=== PATIENT | male | born 1980 | race Caucasian/White ===

== ENCOUNTER 2022-08-12 08:13 | Emergency (ER) | payer BC, SELFPAY ==
[2022-08-12] VITALS (15 sets, daily range): BP systolic 118–145; BP diastolic 81–101; PULSE 86–103; RESP 16–22; TEMP 36.6; O2SAT 89–99; BMI 33.0
[2022-08-12] MEDS: KETOROLAC 15 MG/ML inj IVP (08:58)
[2022-08-12] MEDS: IPRAT-ALBUT 0.5-2.5 MG/3 ML NEB 1 NEB IH (08:58)
[2022-08-12] MEDS: predniSONE 20 MG TABLET 60 MG PO (08:58)
[2022-08-12 08:59] LABS: Basophils Absolute Auto 0.02 K/uL (0.00-0.30); Basophils Percent Auto 0.2 % (0.0-3.0); Eosinophils Absolute Auto 0.01 K/uL (0.00-0.50); Eosinophils Percent Auto 0.1 % (0.0-7.0); Hematocrit 54.1 % (37.0-53.0); Hemoglobin* 18.9 gm/dL (13.5-17.5); Immature Granulocytes Abs Auto 0.04 K/uL (0.00-0.30); Immature Granulocytes Pct Auto 0.5 %; Lymphocytes Absolute Auto 2.06 K/uL (0.90-2.90); Lymphocytes Percent Auto 25.4 % (20-44); Mean Corpuscular HGB Conc 35 gm/dL (32-36); Mean Corpuscular Hemoglobin 30 pg (26-34); Mean Corpuscular Volume 87 fL (80-100); Monocytes Percent Auto 10.2 % (0.0-11.0); Neutrophils Absolute Auto 5.14 K/uL (1.7-7.0); Neutrophils Percent Auto 63.6 % (42.0-72.0); Platelet Count* 204 K/uL (140-440); RDW Coefficient of Variation % 12.2 % (11.5-15.5); Red Blood Count 6.22 m/uL (4.30-5.90)
[2022-08-12 09:05] LABS: Slide Review Reflex No
[2022-08-12 09:11] LABS: Chloride* 104 mmol/L (96-114)
[2022-08-12 09:12] LABS: Albumin* 4.6 g/dL (3.3-5.0); Potassium* 4.1 mmol/L (3.6-5.1); Sodium* 137 mmol/L (135-149)
[2022-08-12 09:14] LABS: Creatinine* 0.9 mg/dL (0.5-1.5); Est. Creatinine Clearance* 109.27; Estimated Glomerular Filt Rate 109 ml/min
[2022-08-12 09:15] LABS: Alanine Aminotransferase* 42 U/L (4-50); Alkaline Phosphatase* 82 U/L (40-150); Aspartate Amino Transferase* 33 U/L (12-35); Bilirubin Direct* 0.2 mg/dL (0.0-0.5); Blood Urea Nitrogen* 15 mg/dL (5-24); Carbon Dioxide* 22 mmol/L (20-32); Glucose* 105 mg/dL (60-115)
[2022-08-12 09:18] LABS: C Reactive Protein* 1.4 mg/dL (0.5-1.0)
[2022-08-12 09:27] LABS: NT Pro B Type NatriureticPept* < 20 pg/mL
[2022-08-12 09:32] LABS: SARS PCR* Negative SARS-CoV-2 (Negative)
[2022-08-12 09:37] LABS: D Dimer Quantitative* < 0.27 ug/ml (0.00-0.50)
--- NOTE | 2022-08-12 09:42 | CRLHL7_ITS ---
For Patients: As a result of the Century Cures Act, medical imaging exams and procedure reports are released immediately into your electronic medical record. You may view this report before your referring provider. If you have questions, please contact your health care provider. INDICATION: Shortness of breath TECHNIQUE: Chest 1 view COMPARISON: None FINDINGS: Cardiovascular and mediastinum: Heart size and vasculature are normal in caliber and appearance. Lungs and pleural spaces: Lungs are clear. No sign of infiltrate or mass. No sign of pleural effusion. No pneumothorax. Bones and soft tissues: No significant findings. IMPRESSION: No acute findings. Dictated by Nicola Echols MD @ 08/12/2022 10:06:52 AM (Electronically Signed)
--- NOTE | 2022-08-12 11:52 | ED_ITS ---
HPI - General Adult General Date Seen: 08/12/22 Chief complaint: Chest Pain Stated complaint: chest pain, lightheadedness Time Seen by Provider: 08/12/22 08:17 Source: patient Mode of arrival: ambulatory Limitations: no limitations History of Present Illness HPI narrative: Patient is a 42-year-old male who presents for evaluation of shortness of breath, cough, and some chest pain. He says he started to feel poorly on Tuesday, 4 days ago. He stayed home from work this week due to feeling poorly all week. He says initially he had some diarrhea, he thought he might be getting a stomach flu. However the diarrhea has resolved. Since then, he has developed fatigue, body aches, and has had a worsening cough than his usual baseline cough. He is not coughing anything significant up. He has had shortness of breath all week which seems to be getting a little worse. Today he is having some chest pain which he notes when he coughs. He does not have chest pain otherwise. He also has a headache which he thinks has developed from coughing. He has not had a fever that he knows of. He has not done home COVID test and is not vaccinated for COVID. He denies unusual leg swelling or pain. Is not having any pleuritic chest pain. Denies exertional chest pain. He does smoke a pack and half a day. He denies any underlying coronary artery disease. He does not have known asthma. Related Data Previous Rx's Medication Instructions Recorded albuterol sulfate 90 mcg/actuation 2 puff inhalation 6XD PRN 08/12/22 aerosol inhaler shortness of breath or wheezing #6.7 grams prednisone 20 mg tablet 20 mg PO BID #10 tabs 08/12/22 Allergies Allergy/AdvReac Type Severity Reaction Status Date / Time erythromycin base Allergy Verified 08/12/22 08:30 bees Allergy Uncoded 08/12/22 08:30 Review of Systems Status of ROS: Reports: 10 or more systems reviewed and unremarkable except as noted in History and below [facility] Social History Smoking Status: Current every day smoker What tobacco products do you use: cigarettes Smoking packs per day: 1 Smoking cigarettes per day: 20.0 Years smoked: 25 Smoking pack-years: 25.00 Do you use any of these nicotine containing products: None Second hand tobacco smoke exposure: Yes How often do you have a drink containing alcohol: 4 or more times a week How many standard drinks containing alcohol do you have on a typical day: 3 or 4 How often do you have six or more drinks on one occasion: Weekly AUDIT-C Alcohol total score: 8 Non-prescribed substance use: denies use service: No Exam Narrative: Exam Narrative: Vital signs as noted above. In general, an alert, nontoxic male. Breathing comfortably. Head: Normocephalic, atraumatic. Eyes: Pupils are equal reactive. Extraocular movements are full. Conjunctivae are normal. ENT: Mucous membranes are moist. Throat is normal. Neck: Supple without lymphadenopathy. Heart: Regular rate and rhythm. No murmur or rub. Lungs: Bibasilar wheezes, no increased work of breathing. Abdomen: Soft and nontender. No organomegaly. Extremities: Well perfused. No edema. No calf tenderness. Pulses intact. Neurologic: Patient is alert and oriented to person and place. Speech is fluent. Face is symmetric. Moves all extremities equally. Affect: Normal. Skin: Warm and dry. Well perfused. Const: Vital Signs, click to edit/add: Vital Signs - 24 hr 08/12/22 08:30 08/12/22 08:35 08/12/22 08:30 Temperature 98 F Pulse Rate Pulse Rate [Pulse Oximeter] 96 99 Respiratory Rate 22 16 Blood Pressure Blood Pressure [Le ft Upper Arm] 124/81 124/81 Pulse Oximetry 99 94 99 Oxygen Delivery Me thod Room Air Room Air 08/12/22 09:00 08/12/22 09:30 08/12/22 09:38 Temperature Pulse Rate 95 Pulse Rate [Pulse Oximeter] 94 95 Respiratory Rate 16 16 Blood Pressure Blood Pressure [Le ft Upper Arm] 126/97 H 142/101 H Pulse Oximetry 98 96 95 Oxygen Delivery Wi thod Room Air Room Air 08/12/22 09:39 08/12/22 09:45 08/12/22 10:00 Temperature Pulse Rate 96 91 103 H Pulse Rate [Pulse Oximeter] Respiratory Rate Blood Pressure 142/99 H Blood Pressure [Le ft Upper Arm] Pulse Oximetry 94 89 95 Oxygen Delivery Wi thod 08/12/22 10:02 08/12/22 10:15 08/12/22 10:30 Temperature Pulse Rate 98 86 89 Pulse Rate [Pulse Oximeter] Respiratory Rate Blood Pressure 145/99 H Blood Pressure [Le ft Upper Arm] Pulse Oximetry 91 95 93 Oxygen Delivery Me thod 08/12/22 10:32 08/12/22 10:45 08/12/22 11:00 Temperature Pulse Rate 87 91 92 Pulse Rate [Pulse Oximeter] Respiratory Rate Blood Pressure 141/89 H Blood Pressure [Le ft Upper Arm] Pulse Oximetry 95 97 98 Oxygen Delivery Me thod 08/12/22 11:02 Temperature Pulse Rate 91 Pulse Rate [Pulse Oximeter] Respiratory Rate Blood Pressure 118/86 Blood Pressure [Le ft Upper Arm] Pulse Oximetry 97 Oxygen Delivery Me thod Course Course Hospital Course: Initially, patient had an EKG which by my review showed a normal sinus rhythm, ventricular rate of 94 beats per minute. He has some J-point elevation con sistent with probably early repolarization but I do not see anything that looks like ischemia. His initial troponin was 0. I gave him a DuoNeb which did help with his shortness of breath. He had labs done including a CBC which showed a normal white blood cell count of 8.1. Diff was unremarkable. His hemoglobin is mildly elevated at 18.9, platelets are normal. Metabolic panel is entirely with in normal limits. Blood sugar is 105. LFTs are normal. CRP is minimally elevated at 1.4, D-dimer was normal at less than 0.27. My suspicion for PE is relatively low, I think it is effectively ruled out with a negative D-dimer. I did elect to do a chest x-ray rather than a CT scan of the chest. Chest x-ray by my review was negative for infiltrate, pneumothorax, pleural effusion or pulmonary edema. Final radiology report was likewise negative. His COVID test is negative, although discussed with him that it is still possible this is a false negative. Symptoms are suggestive of COVID. A 2nd troponin at 2:00 a.m. was also 0. Chest pain is by description not overly suggestive of cardiac chest pain. It appears to be more likely inflammatory or chest wall related given that it is only present with coughing. He does have a component of bronchospasm and I suspect a bronchitis, which we discussed is viral in nature. I do not see anything that will likely respond to antibiotics. I have recommended treatment with prednisone and an inhaler. If he is worsening, develops new symptoms such as fever, he should be seen again. Otherwise, I have given him a note to have today and tomorrow off of work. Follow-up in primary care if not improving over the next several days to week. Return at any time to the emergency department for acute worsening Vital Signs Vital signs: Initial Vital Signs Temperature 98 F 08/12/22 08:30 Temperature Source Temporal Artery Scan 08/12/22 08:30 Pulse Rate 96 08/12/22 08:30 Pulse Rhythm 08/12/22 08:30 Pulse Strength 3+ Normal 08/12/22 08:30 Respiratory Rate 22 08/12/22 08:30 Respiratory Effort 08/12/22 08:30 Respiratory Depth Normal 08/12/22 08:30 Respiratory Pattern 08/12/22 08:30 Blood Pressure 124/81 08/12/22 08:30 Blood Pressure Mean 95 08/12/22 08:30 Blood Pressure Position Supine 08/12/22 08:30 Pulse Oximetry 99 08/12/22 08:30 Oxygen Delivery Method 08/12/22 08:30 Vital Signs Temperature 98 F 08/12/22 08:30 Pulse Rate 96 08/12/22 08:30 Respiratory Rate 22 08/12/22 08:30 Blood Pressure 124/81 08/12/22 08:30 Pulse Oximetry 99 08/12/22 08:30 Oxygen Delivery Method 08/12/22 08:30 Temperature 98 F 08/12/22 08:30 Pulse Rate 91 08/12/22 11:02 Respiratory Rate 16 08/12/22 09:30 Blood Pressure 118/86 08/12/22 11:02 Pulse Oximetry 97 08/12/22 11:02 Oxygen Delivery Method 08/12/22 09:30 Medical Decision Making Lab Data Labs: Lab Results 08/12/22 08/12/22 08/12/22 Range/Units 08:48 08:48 08:55 WBC 8.10 (4.50-11.00) K/uL RBC 6.22 H (4.30-5.90) m/uL Hgb 18.9 H (13.5-17.5) gm/dL Hct 54.1 H (37.0-53.0) % MCV 87 (80-100) fL MCH 30 (26-34) pg MCHC 35 (32-36) gm/dL RDW Coeff of Alis 12.2 (11.5-15.5) % Plt Count 204 (140-440) K/uL Neut % (Auto) 63.6 (42.0-72.0) % Lymph % (Auto) 25.4 (20-44) % Bent % (Auto) 10.2 (0.0-11.0) % Eos % (Auto) 0.1 (0.0-7.0) % Baso % (Auto) 0.2 (0.0-3.0) % Neut # (Auto) 5.14 (1.7-7.0) K/uL Lymph # (Auto) 2.06 (0.90-2.90) K/uL Bent # (Auto) 0.80 (0.00-0.90) K/UL Eos # (Auto) 0.01 (0.00-0.50) K/uL Baso # (Auto) 0.02 (0.00-0.30) K/uL D-Dimer Quant (PE/DVT) (0.00-0.50) ug/ml Sodium (135-149) mmol/L Potassium (3.6-5.1) mmol/L Chloride (96-114) mmol/L Carbon Dioxide (20-32) mmol/L BUN (5-24) mg/dL Creatinine (0.5-1.5) mg/dL Estimated Creat Clear Estimated GFR ml/min Glucose (60-115) mg/dL Calcium (8.4-10.6) mg/dL Total Bilirubin (0.1-1.5) mg/dL Direct Bilirubin (0.0-0.5) mg/dL AST (12-35) U/L ALT (4-50) U/L Alkaline Phosphatase (40-150) U/L C-Reactive Protein (0.5-1.0) mg/dL NT-Pro-B Natriuret Pep pg/mL Total Protein (6.0-8.3) g/dL Albumin (3.3-5.0) g/dL SARS-CoV-2 (PCR) Negative SARS-CoV-2 (Negative) POC Troponin I 0.00 L (0.01-0.04) ng/ml 08/12/22 08/12/22 08/12/22 Range/Units 08:55 08:55 10:45 WBC (4.50-11.00) K/uL RBC (4.30-5.90) m/uL Hgb (13.5-17.5) gm/dL Hct (37.0-53.0) % MCV (80-100) fL MCH (26-34) pg MCHC (32-36) gm/dL RDW Coeff of Alis (11.5-15.5) % Plt Count (140-440) K/uL Neut % (Auto) (42.0-72.0) % Lymph % (Auto) (20-44) % Bent % (Auto) (0.0-11.0) % Eos % (Auto) (0.0-7.0) % Baso % (Auto) (0.0-3.0) % Neut # (Auto) (1.7-7.0) K/uL Lymph # (Auto) (0.90-2.90) K/uL Bent # (Auto) (0.00-0.90) K/UL Eos # (Auto) (0.00-0.50) K/uL Baso # (Auto) (0.00-0.30) K/uL D-Dimer Quant (PE/DVT) < 0.27 (0.00-0.50) ug/ml Sodium 137 (135-149) mmol/L Potassium 4.1 (3.6-5.1) mmol/L Chloride 104 (96-114) mmol/L Carbon Dioxide 22 (20-32) mmol/L BUN 15 (5-24) mg/dL Creatinine 0.9 (0.5-1.5) mg/dL Estimated Creat Clear 109.27 Estimated GFR 109 ml/min Glucose 105 (60-115) mg/dL Calcium 9.0 (8.4-10.6) mg/dL Total Bilirubin 1.0 (0.1-1.5) mg/dL Direct Bilirubin 0.2 (0.0-0.5) mg/dL AST 33 (12-35) U/L ALT 42 (4-50) U/L Alkaline Phosphatase 82 (40-150) U/L C-Reactive Protein 1.4 H (0.5-1.0) mg/dL NT-Pro-B Natriuret Pep < 20 pg/mL Total Protein 8.0 (6.0-8.3) g/dL Albumin 4.6 (3.3-5.0) g/dL SARS-CoV-2 (PCR) (Negative) POC Troponin I 0.00 L (0.01-0.04) ng/ml Discharge Plan Discharge Clinical Impression: Bronchitis Patient Disposition: Home, Self-Care Condition: Improved Instructions: Acute Bronchitis (ED) Additional Instructions: Prednisone, inhaler as prescribed. Limit smoking as much as possible until you are feeling better. Follow-up in clinic next week for recheck. Return at any time for worsening chest pain, high fevers, worsening shortness of breath. Prescriptions: New albuterol sulfate 90 mcg/actuation HFA aerosol inhaler 2 puff inhalation 6XD PRN (Reason: shortness of breath or wheezing) Qty: 6.7 0RF prednisone 20 mg tablet 20 mg PO BID Qty: 10 0RF Follow Up/Referrals: Provider,Not a Local [Primary Care Provider] - Stand Alone Forms: [employer] Info Instructions
== END 2022-08-12 11:15 | disposition home or self-care (01) ==
PROVIDERS: Emergency Provider Emergency Medicine
DX: J40 Bronchitis, not specified as acute or chronic (principal)
CPT/HCPCS: 36415; 71045; 80048; 80076; 83880; 84484; 85025; 85379; 86140; 87635; 93005; 94640; 94761; 96374; 99284; J1885; J7512